=== PATIENT | female | born 1970 | race Native Hawaiian/Other Pacific Islander ===

== ENCOUNTER 2017-06-10 12:19 | Emergency (ER) | payer BC ==
[2017-06-10 12:40] VITALS: TEMP 97.2
--- NOTE | 2017-06-10 16:20 | C.PDOC ---
History Of Present Illness 46 year old female presents to the emergency department complaining of pain in the left chest, onset last night. Pain is digitally and positionally reproducible. 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 Denies any substernal chest pressure or shortness of breath. Time Seen by Provider: 06/10/17 15:57 Chief Complaint (Nursing): Chest Pain History Per: Patient History/Exam Limitations: no limitations Onset/Duration Of Symptoms: Days (x2) Current Symptoms Are (Timing): Still Present Past Medical History Reviewed: Historical Data, Nursing Documentation, Vital Signs Vital Signs: Last Vital Signs Temp 97.2 F L 06/10/17 12:37 Pulse 72 06/10/17 16:35 Resp 17 06/10/17 16:35 BP 159/94 H 06/10/17 16:35 Pulse Ox 99 06/10/17 16:35 - Medical History PMH: HTN Surgical History: No Surg Hx Family History: States: [place] (Father due to [place] at age 75) - Social History Hx Alcohol Use: No Hx Substance Use: No - Immunization History Hx Tetanus Toxoid Vaccination: No Hx Influenza Vaccination: No Hx Pneumococcal Vaccination: No Review Of Systems Except As Marked, All Systems Reviewed And Found Negative. Cardiovascular: Positive for: Chest Pain (left). Negative for: Other ( substernal chest pressure) Respiratory: Negative for: Shortness of Breath Physical Exam - Physical Exam Appears: Non-toxic, No Acute Distress Skin: Normal Color, Warm, Dry, No Rash Head: Atraumatic, Normacephalic Eye(s): bilateral: Normal Inspection, PERRL, EOMI Nose: Normal Oral Mucosa: Moist Neck: Normal ROM, Supple Chest: Symmetrical, Other (Digitally reproducible pain at the left parasternal border) Cardiovascular: Rhythm Regular Respiratory: Normal Breath Sounds, No Rales, No Rhonchi, No Wheezing Gastrointestinal/Abdominal: Normal Exam, Soft, No Tenderness Extremity: Bilateral: Atraumatic, Normal Color And Temperature, Normal ROM Neurological/Psych: Oriented x3, Normal Speech ED Course And Treatment ECG: Interpreted By Me ECG Rhythm: Sinus Rhythm ECG Interpretation: Normal Rate From EC O2 Sat by Pulse Oximetry: 100 (RA) Pulse Ox Interpretation: Normal Medical Decision Making Medical Decision Making: Time: 16:22 Initial Plan: * EKG * Motrin 600 mg PO Impression: digitally and positionally reproducible L>R inferior parasternal discomfort c/w costochondritis- odd lifting movements with special needs children. NO ACS s/s. Disposition Doctor Will See Patient In The: Office Counseled Patient/Family Regarding: Studies Performed, Diagnosis - Disposition Referrals: Eboni Bell MD [Staff Provider] - Disposition: HOME/ ROUTINE Disposition Time: 16:20 Condition: GOOD Additional Instructions: ice packs 1/2 hour per hour, nothing hot motrin 400-600 mg every 6 hours as needed avoid heavy lifting as able. Follow-up with your PMD as needed. Normal work activities. Instructions: Costochondritis Forms: [facility] (Persian), Work Excuse - Clinical Impression Clinical Impression: Chest wall discomfort - Scribe Statement The provider has reviewed the documentation as recorded by the Thomas Berumen Provider Attestation: All medical record entries made by the Addyibjenny were at my direction and personally dictated by me. I have reviewed the chart and agree that the record accurately reflects my personal performance of the history, physical exam, medical decision making, and the department course for this patient. I have also personally directed, reviewed, and agree with the discharge instructions and disposition.
[2017-06-10 17:08] VITALS: BP 159/94; PULSE 72; RESP 17
[2017-06-10 18:44] VITALS: O2SAT 100
--- NOTE | 2017-06-13 22:43 | CARD ---
APPROVED REPORT EKG Measurement Heart [id number] <Conclusion> Normal sinus rhythm Possible Left atrial enlargement Borderline ECG
== END 2017-06-10 16:35 | disposition home or self-care (01) ==
LOC: C.ER 12:19
DX: R07.89 Other chest pain (principal)